=== PATIENT | female | born 1990 | race African-American/Black ===

== ENCOUNTER 2023-05-07 20:26 | Emergency (ER) | payer MEDICAID ==
[~2023-05-07] VITALS: Ht 172.7 cm; Wt 55.0 kg
[2023-05-07] MEDS ORDERED: LORAZEPAM 4MG/ML VIAL IM NR (21:10)
[2023-05-07] MEDS ORDERED: LORAZEPAM 2MG/ML CPJ IM STA (21:10)
[2023-05-07] MEDS ORDERED: HALOPERIDOL LACTATE 5MG/ML VIAL IM STA (21:10)
[2023-05-07] MEDS ORDERED: DIPHENHYDRAMINE 50MG/ML VIAL IM STA (21:10)
[2023-05-08 00:30] LABS: BASOPHILS % 0.4 % (0.0-2.0); EOSINOPHILS % 0.5 % (0.0-5.0); HEMATOCRIT. 35.4 % (36.0-48.0); HEMOGLOBIN. 11.4 g/dL (12.0-16.0); LYMPHOCYTES % 17.8 % (20.0-50.0); MEAN CORPUSCULAR HGB CONC 32.2 g/dL (31.0-37.0); MEAN CORPUSCULAR VOLUME 87.1 fL (81.0-99.0); MEAN PLATELET VOLUME 7.4 fl (7.4-10.4); MONOCYTES % 10.3 % (2.0-8.0); PLATELET 366 x1000/uL (130-400); RED BLOOD CELL COUNT 4.07 mill/uL (4.2-5.4); RED CELL DISTRIBUTION WIDTH 14.8 % (11.6-14.6); WHITE BLOOD COUNT 11.9 x1000/uL (4.5-11.0)
[2023-05-08 00:53] LABS: HCG SCREEN NEGATIVE
[2023-05-08 00:54] LABS: ACETAMINOPHEN < 2 ug/mL (10-30); ALANINE AMINOTRANSFERASE 29 IU/L (10-49); ALBUMIN 3.6 g/dL (3.2-4.8); ASPARTATE AMINOTRANSFERASE 38 IU/L (<34); BILIRUBIN TOTAL 0.9 mg/dL (0.1-1.0); CALCIUM 8.8 mg/dL (8.7-10.4); CARBON DIOXIDE 28 mEq/L (21-32); CHLORIDE 104 mEq/L (98-107); CREATINE KINASE 629 IU/L (34-145); CREATININE 0.6 mg/dL (0.6-1.0); ETHANOL BLOOD < 10 mg/dL (<10); GLUCOSE 83 mg/dL (70-105); POTASSIUM 3.9 mEq/L (3.5-5.1); PROTEIN TOTAL 5.6 g/dL (6.0-8.3); SODIUM 139 mEq/L (136-145); THYROID STIMULATING HORMONE 0.98 uIU/mL (0.55-4.78); UREA NITROGEN BLOOD 16 mg/dL (9-23)
[2023-05-08 01:29] LABS: *AMPHETAMINES SCREEN URINE PRESUMPTIVE POSITIVE (NEGATIVE); *BARBITURATES SCREEN URINE NEGATIVE (NEGATIVE); *BENZODIAZEPINES SCREEN URINE NEGATIVE (NEGATIVE); *COCAINE SCREEN URINE PRESUMPTIVE POSITIVE (NEGATIVE); CANNABINOID URINE SCREEN NEGATIVE (NEGATIVE); ECSTASY MDMA SCREEN URINE CONF.TEST INDICATED (NEGATIVE); METHADONE URINE SCREEN Neg (NEGATIVE); OPIATES URINE SCREEN NEGATIVE (NEGATIVE); PHENCYCLIDINE URINE SCREEN PRESUMTIVE POSITIVE (NEGATIVE)
[2023-05-08 03:11] LABS: CLARITY URINE CLEAR (CLEAR); COLOR URINE YELLOW (YELLOW); GLUCOSE URINE NEGATIVE (NEGATIVE); KETONES URINE 4+ (NEGATIVE); PH URINE 7.5 (4.5-8.0); PROTEIN URINE TRACE (NEGATIVE); SPECIFIC GRAVITY URINE 1.032 (1.005-1.030)
[2023-05-08 03:12] LABS: LEUKOCYTE ESTERASE URINE TRACE (NEGATIVE); NITRITE URINE NEGATIVE (NEGATIVE); OCCULT BLOOD URINE NEGATIVE (NEGATIVE)
[2023-05-08] MEDS ORDERED: SODIUM CHLORIDE 0.9% 1,000 ML IV NR (03:30)
[2023-05-08 03:37] LABS: SQUAMOUS EPITHELIAL CELL URINE FEW /lpf (RARE/1+)
[2023-05-08 03:54] LABS: BACTERIA URINE NONE SEEN; RBC URINE 0-2 /hpf (0-2); WBC URINE 0-2 /hpf (0-2)
[2023-05-09] MEDS ORDERED: OLANZAPINE 5MG TABLET ODT PO SCH (11:00)
[2023-05-09 14:33] VITALS: BP 106/69; PULSE 91; RESP 18; TEMP 98.4
== END 2023-05-09 14:32 ==
LOC: EDBD 20:26 → ER 20:26
DX: R45.1 Restlessness and agitation (principal); F19.90 Other psychoactive substance use, unspecified, uncomplicated
CPT/HCPCS: 99285; 36415; 93005; 96372; J1200; J1630; C9803; J2060